=== PATIENT | male | born 1970 | race Caucasian/White ===

== ENCOUNTER → 2016-04-20 | Outpatient (CLI) | payer BC ==
[~2016-04-20] MED LIST: CEFEPIME 22 GM/100 M IV; DISCONTINUED MED PO; FLAGYL PO; GLUCOPHAGE500 M1 PO; JANUMET 50-1,1 UDTAB PO; JANUMET 50-501 UDTAB PO; NEURONTIN PO; NORCO 10-325 TA1 TAB PO; PERCOCET5/325 PO; PRIMATENE; PROAIR HFA8.5 GM INH; PROTONIX PO; SINGULAIR PO; VANCO 1.251.25 GM/25 IV
--- NOTE | ~2016-04-20 | CT4 ---
[facility] A Service of [facility] RADIOLOGY TEXT RESULTS PATIENT: LUCIEN OLIVAS [id number] 70 UNIT #: [id number] AGE: [address]: Costa Heath MD SEX: M ORDER DR: [id number] [id number] [facility]. [place], [place] [address] [id number] O MR#: [id number] Acc #: [id number] NAME: LUCIEN OLIVAS : 1970 SEX: M STUDY DATE/TIME: 04/20/2016 7:38 UNIT: [facility] ROOM: STUDY DESCRIPTION: CT Abd and Pelv Wo Cont Attending Physician: Costa Heath M.D. Referring Physician: Costa Heath M.D. Ordering Physician: Costa Heath M.D. Primary Care Physician: Jared Saunders M.D. MEDICAL IMAGING REPORT This report is preliminary unless electronic signature is present EXAM CT abdomen and pelvis without contrast INDICATION Left flank pain for the past 6 months. PROCEDURE Noncontrast low-dose CT of the chest, performed per lung cancer screening protocol. COMPARISON 04/07/[address] exam was performed with one or more of the following radiation dose reduction techniques: automatic exposure control, adjustment of mA and/or kV according to patient size, and iterative reconstruction. FINDINGS ABDOMEN WITHOUT CONTRAST: Included lung bases clear. The spleen measures 17.6 cm. Adrenal glands and pancreas unremarkable unenhanced appearance. Probable sludge or small stones in the gallbladder. No evidence for active inflammation. Redemonstration of large subcapsular hematoma left kidney. It measures approximately 9.6 cm x 5.7 cm, previously 10.8 x 7.1 cm when measured similarly. There is still significant compression of the left kidney. Multiple nonobstructing calculi in the left kidney are similar. There is no radiodense ureteral calculus or hydronephrosis. The bowel loops are nondilated. [facility] A Service of [facility] RADIOLOGY TEXT RESULTS PATIENT: LUCIEN OLIVAS [id number] [birth year] UNIT #: [id number] AGE: [address]: Costa Heath MD SEX: M ORDER DR: PELVIS WITHOUT CONTRAST: No pelvic mass or fluid. No aggressive appearing bone lesion. IMPRESSION 1. The left renal subcapsular hematoma is slightly smaller than on the prior. There is still significant mass effect on the left kidney, that could result of page kidney. 2. Nonobstructing calculi left kidney are similar. There is no radiodense ureteral calculus or hydronephrosis. 3. Other findings detailed above. Dictated by... Todd Pantoja M.D. THIS IS AN ELECTRONICALLY VERIFIED REPORT Todd Pantoja M.D. at 04/20/2016 4:52 PM Jonas TD: 04/20/2016 10:50 JOB #: [id number] MEDICAL IMAGING REPORT COPY
== END | disposition home or self-care (01) ==
LOC: CCAT 07:09
DX: N20.1 Calculus of ureter (principal); N20.0 Calculus of kidney; S37.012D Minor contusion of left kidney, subsequent encounter
CPT/HCPCS: 74176

== ENCOUNTER → 2016-05-18 | Outpatient (CLI) | payer BC ==
--- NOTE | ~2016-05-18 | CT4 ---
[facility] A Service of [facility] RADIOLOGY TEXT RESULTS PATIENT: LUCIEN OLIVAS LOCATION: [facility] : 70 UNIT #: [id number] AGE: [address]: Costa Heath MD SEX: M ORDER DR: [id number] [place] [address] [id number] [facility] [place] [facility]. [place], [place] [address] [id number] O MR#: [id number] Acc #: [id number] NAME: LUCIEN OLIVAS : 1970 SEX: M STUDY DATE/TIME: 05/18/2016 12:46 UNIT: [facility] ROOM: STUDY DESCRIPTION: CT Abd and Pelv Wo Cont Attending Physician: Costa Heath M.D. Referring Physician: Costa Heath M.D. Ordering Physician: Costa Heath M.D. Primary Care Physician: Jared Saunders M.D. MEDICAL IMAGING REPORT This report is preliminary unless electronic signature is present EXAM CT abdomen and pelvis without contrast. INDICATION Bilateral flank pain, left greater than right since November 2015. PROCEDURE Unenhanced CT of the abdomen and pelvis. This CT exam was performed with one or more of the following radiation dose reduction techniques: automatic exposure control, adjustment of mA and/or kV according to patient size, and iterative reconstruction. COMPARISON 04/20/2016 FINDINGS The included lung bases are clear. Cirrhotic morphology of the liver. Spleen measures 17 cm in length. Adrenal glands, pancreas have an unremarkable unenhanced appearance. There are a few tiny stones dependently in the gallbladder. The subcapsular left renal hematoma is smaller. It now measures 5.0 x 7.0 cm, previously 9.6 x 5.7 cm. There is still significant impression on the left kidney. The nonobstructing calculi in the left kidney are very similar. The bowel loops are nondilated. Appendix is normal. Portohepatic nodes are similar, probably related to underlying liver disease. PELVIS WITHOUT CONTRAST: No pelvic mass or fluid. No aggressive appearing bone lesion. [facility] A Service of [facility] RADIOLOGY TEXT RESULTS PATIENT: LUCIEN OLIVAS LOCATION: [facility] #: [id number] : 70 UNIT #: [id number] AGE: [address]: Costa Heath MD SEX: M ORDER DR: IMPRESSION 1. Subcapsular hematoma in the left kidney is slightly smaller but persistent and still has significant mass effect on the kidney. 2. Nonobstructing calculi in the left kidney are unchanged. 3. 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 Dictated by... Todd Pantoja M.D. THIS IS AN ELECTRONICALLY VERIFIED REPORT Todd Pantoja M.D. at 05/19/2016 7:35 AM EED/michel TD: 05/18/2016 16:32 JOB #: [id number] MEDICAL IMAGING REPORT Page 1 of 1 COPY
== END | disposition home or self-care (01) ==
LOC: CCAT 12:21
DX: N20.1 Calculus of ureter (principal); S37.012A Minor contusion of left kidney, initial encounter; N20.0 Calculus of kidney; K74.60 Unspecified cirrhosis of liver; R16.1 Splenomegaly, not elsewhere classified
CPT/HCPCS: 74176

== ENCOUNTER 2016-07-16 21:35 | Emergency (ER) | payer BC ==
--- NOTE | ~2016-07-16 | CT71 ---
[facility] A Service of [facility] RADIOLOGY TEXT RESULTS PATIENT: LUCIEN OLIVAS LOCATION: [facility] : 70 UNIT #: [id number] AGE: [address]: Julio C Walter MD SEX: M ORDER DR: [id number] [address] [place], [place] [address] [id number] E MR#: [id number] Acc #: [id number] NAME: LUCIEN OLIVAS : 1970 SEX: M STUDY DATE/TIME: 07/16/2016 22:48 UNIT: [facility] ROOM: STUDY DESCRIPTION: CT Head Wo Contrast Attending Physician: Julio C Walter Ordering Physician: Ed Kodi Nava M.D. Primary Care Physician: Jared Saunders M.D. MEDICAL IMAGING REPORT This report is preliminary unless electronic signature is present EXAM CT head INDICATION Dizziness for 1 day. [place] a pop in the head. TECHNIQUE CT head without contrast. This CT exam was performed with one or more of the following radiation dose reduction techniques: automatic exposure control, adjustment of mA and/or kV according to patient size, and iterative reconstruction. COMPARISON CT head dated 06/03/2010. FINDINGS Axial noncontrast images were obtained from the skull base to the vertex. Ventricular size and configuration are normal. There is no evidence of acute infarct or hemorrhage. There are no extra-axial fluid collections. No mass lesion or mass effect is seen. There are no skull fractures. IMPRESSION Normal noncontrast head CT. Dictated by... Jamshid Cr M.D. THIS IS AN ELECTRONICALLY VERIFIED REPORT Jamshid Cr M.D. at 07/17/2016 12:49 AM RPC/ljd [facility] A Service of [facility] RADIOLOGY TEXT RESULTS PATIENT: LUCIEN OLIVAS LOCATION: [facility] : 70 UNIT #: [id number] AGE: [address]: Julio C Walter MD SEX: M ORDER DR: TD: 07/16/2016 23:28 JOB #: [id number] MEDICAL IMAGING REPORT Page 1 of 1 COPY
--- NOTE | ~2016-07-16 | CT17 ---
[facility] A Service of [facility] RADIOLOGY TEXT RESULTS PATIENT: LUCIEN OLIVAS LOCATION: [facility] : 70 UNIT #: [id number] AGE: [address]: Carlota Baker MD SEX: M ORDER DR: [id number] [facility] [address] [facility] [place] [facility]. [place], [place] [address] [id number] E MR#: [id number] Acc #: [id number] NAME: LUCEIN OLIVAS : 1970 SEX: M STUDY DATE/TIME: 07/17/2016 0:24 UNIT: [facility] ROOM: STUDY DESCRIPTION: CT Angio Head Attending Physician: Carlota Baker M.D. Primary Care Physician: Jared Saunders M.D. MEDICAL IMAGING REPORT This report is preliminary unless electronic signature is present EXAM CTA head and neck INDICATION [place] a pop in the head. Headache and dizziness. Vision changes. TECHNIQUE CT angiography of the head and neck utilizing 100 mL liters Isovue-370 IV contrast. Curved planar reconstructions of the great vessels were performed. Volume-rendered and surface-rendered reconstructions of the head was performed. Coronal and sagittal 3-D MIP reconstructions were attained and reviewed. This CT exam was performed with one or more of the following radiation dose reduction techniques: automatic exposure control, adjustment of mA and/or kV according to patient size, and iterative reconstruction. COMPARISON CT head dated 07/16/2016. FINDINGS CTA NECK: Evaluation for significant carotid arterial stenosis is based upon the NASCET criteria. There is a three-vessel aortic arch. Mild atherosclerotic disease is identified at the carotid bifurcations, however, there is no evidence of a significant stenosis. Both vertebral arteries are patent. CTA HEAD: The intracranial internal carotid arteries are patent. The anterior cerebral arteries and the middle cerebral arteries are patent. No evidence of a significant stenosis, thrombosis, or aneurysm. [facility] A Service [facility] RADIOLOGY TEXT RESULTS PATIENT: LUCIEN OLIVAS LOCATION: [facility] : 70 UNIT #: [id number] AGE: [address]: Carlota Baker MD SEX: M ORDER DR: There is persistent origins of the posterior cerebral arteries. The P1 segments of the posterior cerebral arteries are small. Vertebrobasilar artery is unremarkable. No evidence of a stenosis, thrombosis, or aneurysm. No dural venous thrombus. IMPRESSION 1. Mild atherosclerotic disease at the carotid bifurcations, however no evidence of significant carotid arterial stenosis in the neck. 2. Negative CTA of the head. No intracranial stenosis, thrombosis, or aneurysm. Dictated by... Jamshid Cr M.D. THIS IS AN ELECTRONICALLY VERIFIED REPORT Jamshid Cr M.D. at 07/21/2016 7:03 AM PETER/masha TD: 07/17/2016 03:17 JOB #: [id number] MEDICAL IMAGING REPORT Page 1 of 1 COPY
--- NOTE | ~2016-07-16 | EKG ---
PATIENT: LUCIEN OLIVAS UNIT #: [id number] Ventricular Rate: 88 BPM Atrial Rate: 88 BPM P-R Interval: 192 ms QRS Duration: 124 ms Q-T Interval: 384 ms QTC Calculation(Bezet): 464 ms P [place]: 56 degrees Calculated R [place]: -44 degrees Calculated T [place]: 42 degrees Diagnosis Line: Normal sinus rhythm Diagnosis Line: Possible Left atrial enlargement Diagnosis Line: Left axis deviation Diagnosis Line: Right bundle branch block Diagnosis Line: Abnormal ECG Diagnosis Line: When compared with ECG of 05-FEB-2016 07:17, Diagnosis Line: Nonspecific T wave abnormality, improved in Diagnosis Line: Lateral leads Diagnosis Line: Confirmed by LAUREN GUADALUPE MD ([id number]) on Diagnosis Line: 07/17/2016 1:36:31 PM INTERPRETING MD: COLLINS CASTANO
[2016-07-16 22:31] LABS: BASOPHIL% 0.3 % (0-2.5); DIFF IND NO; EOSINOPHIL# 0.3 X10e3 (0-0.7); EOSINOPHIL% 2.7 % (0.0-7.0); HEMATOCRIT 45.1 % (38.0-50.0); HEMOGLOBIN 14.8 gm/dL (13.0-16.0); LYMPHOCYTE# 2.2 X10e3 (1.0-3.5); LYMPHOCYTE% 21.8 % (17.0-45.0); MEAN CELL VOLUME 87.8 FL (83-96); MEAN CORPUSCULAR HEMOGLOBIN 28.8 PG (28-34); MEAN CORPUSCULAR HGB CONC 32.9 g/dL (30-36); MEAN PLATELET VOLUME 9.4 FL (6.5-11.5); MONOCYTE# 0.8 X10e3 (0-1.0); NEUTROPHIL# 6.9 X10e3 (1.5-7.1); NEUTROPHIL% 67.2 % (40-75); PLATELET COUNT 166 X10e3 (140-420); RED BLOOD COUNT 5.14 X10e (3.90-5.60); RED CELL DISTRIBUTION WIDTH 13.9 % (11.0-15.5); WHITE BLOOD COUNT 10.3 X10e3 (4.0-10.5)
[2016-07-16 22:47] LABS: INR 1.1; PARTIAL THROMBOPLASTIN TIME 27.7 SECONDS (23.5-31.3); PROTHROMBIN TIME (PATIENT) 11.2 SECONDS (9.6-11.5)
[2016-07-16 22:51] LABS: CALCIUM SERUM 8.9 mg/dL (8.4-10.2); GLOM FILT RATE Estimated 90.5 mL/min (>60); POTASSIUM 3.6 mmol/L (3.5-5.1)
== END 2016-07-17 03:15 | disposition home or self-care (01) ==
LOC: CED 21:35
PROVIDERS: Emergency Medicine
DX: H53.129 Transient visual loss, unspecified eye (principal); I10 Essential (primary) hypertension; J45.909 Unspecified asthma, uncomplicated; E11.40 Type 2 diabetes mellitus with diabetic neuropathy, unspecified
CPT/HCPCS: 70450; 70496; 70498; 80048; 82947; 85025; 85610; 85730; 93005; 99284; Q9967